=== PATIENT | female | born 1965 | race Hispanic/Latino ===

== ENCOUNTER 2019-04-06 15:51 | Emergency (ER) | payer SELFPAY ==
[2019-04-06 16:12] VITALS: BP 159/81
--- NOTE | 2019-04-06 16:16 | Emergency Department Report ---
Blank Doc - Documentation Documentation: pt presents with bilateral eye erythema, edema pain, mucus drainage from the e yes, eyelashes matting, last saw an eye doctor 4-5 months ago, did not get anything in the eye, some blurry vision, no fever, PMhx none, no daily meds, no allergies to meds
--- NOTE | 2019-04-06 16:22 | Emergency Department Report ---
ED Eye Problem HPI - General Chief complaint: Eye Problems Stated complaint: SWOLLEN EYES Time Seen by Provider: 04/06/19 16:11 Source: patient Mode of arrival: Ambulatory Limitations: No Limitations - History of Present Illness Initial comments: pt presents with bilateral eye erythema, edema pain, mucus drainage from the eyes, eyelashes matting, last saw an eye doctor 4-5 months ago, did not get anything in the eye, some blurry vision, no fever, PMhx none, no daily meds, no allergies to meds r 20/40 l 20/50 pt did not have her glasses on - Related Data Home Medications Medication Instructions Recorded Confirmed Last Taken Aspirin [Aspirin BABY CHEW TAB] 81 mg PO QDAY 04/06/19 04/06/19 04/06/19 Previous Rx's Medication Instructions Recorded Last Taken Type Erythromycin [Erythromycin Ophth 0.5 inch OP QID 7 Days tube 04/06/19 Unknown Rx Oint] Allergies Allergy/AdvReac Type Severity Reaction Status Date / Time No Known Allergies Allergy Unverified 04/06/19 15:52 ED Review of Systems ROS: Stated complaint: SWOLLEN EYES Other details as noted in HPI Comment: All other systems reviewed and negative ED Past Medical Hx - Past Medical History Previous Medical History?: No - Surgical History Past Surgical History?: Yes Additional Surgical History: tubal ligation - Social History Smoking Status: Current Every Day Smoker Substance Use Type: None - Medications Home Medications: Home Medications Medication Instructions Recorded Confirmed Last Taken Type Aspirin [Aspirin BABY CHEW TAB] 81 mg PO QDAY 04/06/19 04/06/19 04/06/19 History Erythromycin [Erythromycin Ophth 0.5 inch OP QID 7 Days tube 04/06/19 Unknown Rx Oint] ED Physical Exam - General Limitations: No Limitations General appearance: alert, in no apparent distress - Head Head exam: Present: atraumatic, normocephalic - Eye Eye exam: Present: PERRL, EOMI, conjunctival injection (bilaterally with purulent discharge, some mild edema of the sclera with erythema bilaterally), other (visual acuity: right eye 20/40, left eye 20/50, pt did not have on her glasses during visual acuity which she normally wears every day). Absent: periorbital swelling, periorbital tenderness - ENT ENT exam: Present: normal orophraynx, mucous membranes moist, other (normal nasal turbinates bilaterally ) - Neurological Exam Neurological exam: Present: alert, oriented X3 - Psychiatric Psychiatric exam: Present: normal affect, normal mood - Skin Skin exam: Present: warm, dry, intact ED Course Vital Signs 04/06/19 04/06/19 16:11 17:08 Temperature 97.9 F 97.9 F Pulse Rate 99 H 99 H Respiratory 18 18 Rate Blood Pressure 159/81 O2 Sat by Pulse 96 96 Oximetry ED Medical Decision Making - Medical Decision Making pt presents with erythema and edema of the bilateral sclera with purulent discharge, visual acuity was performed without pt having on her glasses and was 20/40 in the right eye, and 20/50 in the left, pt given erythromycin ointment, advised pt to follow up with ophthalmology in the next 2-3 days. follow up with PCP in the next 2-3 days. return to the emergency room immediately for any new or worsening symptoms. pt evaluated Dr. Childers and recommends treatment for conjunctivitis and ophthalmology referral. Critical care attestation.: If time is entered above; I have spent that time in minutes in the direct care of this critically ill patient, excluding procedure time. ED Disposition Clinical Impression: Conjunctivitis Qualifiers: Conjunctivitis type: acute Acute conjunctivitis type: unspecified Laterality: bilateral Qualified Code(s): H10.33 - Unspecified acute conjunctivitis, bilateral Disposition: TO HOME OR SELFCARE Is pt being admited?: No Does the pt Need Aspirin: No Condition: Stable Instructions: Conjunctivitis (ED) Additional Instructions: Please use medication as prescribed. Please follow up with an loan analyst in the next 2-3 days for reevaluation. Please follow up with PCP in the next 2-3 days. Return to the emergency room immediately for any new or worsening symptoms. Prescriptions: Erythromycin [Erythromycin Ophth Oint] 0.5 inch OP QID 7 Days tube Referrals: ESTELLE MURRAY MD [Staff Physician] - 2-3 Days ZAIRE CHAMORRO MD [Staff Physician] - 2-[address] [facility] [Outside] - 2-3 Days Time of Disposition: 16:26 Print Language: FRISIAN
== END 2019-04-06 17:10 | disposition home or self-care (01) ==
LOC: ED 15:51
DX: H10.33 Unspecified acute conjunctivitis, bilateral (principal); F17.200 Nicotine dependence, unspecified, uncomplicated; Z98.51 Tubal ligation status
CPT/HCPCS: 99282

== ENCOUNTER 2019-10-15 16:32 | Emergency (ER) | payer SELFPAY ==
[2019-10-15] MEDS ORDERED: traMADol 50 MG TAB PO ONE (20:13)
[2019-10-15] MEDS ORDERED: predniSONE 20 MG TAB PO ONE (20:13)
--- NOTE | 2019-10-15 21:25 | Emergency Department Report ---
ED Extremity Problem HPI - General Chief complaint: Extremity Problem,Nontraumatic Stated complaint: LT LEG PAIN Time Seen by Provider: 10/15/19 19:58 Source: patient Mode of arrival: Ambulatory Limitations: No Limitations - History of Present Illness Initial comments: Patient is a 55-year-old white female with a history of chronic degenerative joint disease who presents to the ED with complaint of acute exacerbation of her chronic left knee pain for the last 3 months worse in the last 1 week. Patient denies fall, traumatic injury, numbness and tingling or weakness of left leg, back pain, fever, chills, cough, chest pain, shortness of breath or heavy lifting. MD Complaint: extremity pain (LEFT KNEE JOINT PAIN), extremity swelling (Left knee joint), joint swelling (left knee), joint paint (left knee) -: Gradual, month(s) (3) Location: left, lower extremity (knee), knee -: Yes arthralgia (left knee) Severity scale (0 -10): 6 Quality: aching, sharp Consistency: constant Improves with: nothing Worsens with: weight bearing, walking, exertion, palpation Associated Symptoms: denies other symptoms, arthralgias. denies: chest pain, shortness of breath, fever, rash - Related Data Home Medications Medication Instructions Recorded Confirmed Last Taken Aspirin [Aspirin BABY CHEW TAB] 81 mg PO QDAY 04/06/19 04/06/19 04/06/19 Previous Rx's Medication Instructions Recorded Last Taken Type Erythromycin [Erythromycin Ophth 0.5 inch OP QID 7 Days tube 04/06/19 Unknown Rx Oint] Naproxen 500 mg PO Q12H PRN #30 tablet 10/15/19 Unknown Rx predniSONE [Deltasone] 60 mg PO QDAY #15 tab 10/15/19 Unknown Rx traMADoL [Ultram] 50 mg PO Q6HR PRN #12 tablet 10/15/19 Unknown Rx Allergies Allergy/AdvReac Type Severity Reaction Status Date / Time No Known Allergies Allergy Verified 10/15/19 16:35 ED Review of Systems ROS: Stated complaint: LT LEG PAIN Other details as noted in HPI Constitutional: denies: chills, fever Eyes: denies: eye pain, eye discharge, vision change ENT: denies: ear pain, throat pain Respiratory: denies: cough, shortness of breath, wheezing Cardiovascular: denies: chest pain, palpitations Endocrine: no symptoms reported Gastrointestinal: denies: abdominal pain, nausea, diarrhea Genitourinary: denies: urgency, dysuria, discharge Musculoskeletal: joint swelling (Left knee), arthralgia (LEFT KNEE), myalgia. denies: back pain Skin: denies: rash, lesions Neurological: denies: headache, weakness, paresthesias Psychiatric: denies: anxiety, depression Hematological/Lymphatic: denies: easy bleeding, easy bruising ED Past Medical Hx - Past Medical History Previous Medical History?: No - Surgical History Past Surgical History?: Yes Additional Surgical History: tubal ligation - Social History Smoking Status: Current Every Day Smoker Substance Use Type: None - Medications Home Medications: Home Medications Medication Instructions Recorded Confirmed Last Taken Type Aspirin [Aspirin BABY CHEW TAB] 81 mg PO QDAY 04/06/19 04/06/19 04/06/19 History Erythromycin [Erythromycin Ophth 0.5 inch OP QID 7 Days tube 04/06/19 Unknown Rx Oint] Naproxen 500 mg PO Q12H PRN #30 tablet 10/15/19 Unknown Rx predniSONE [Deltasone] 60 mg PO QDAY #15 tab 10/15/19 Unknown Rx traMADoL [Ultram] 50 mg PO Q6HR PRN #12 tablet 10/15/19 Unknown Rx ED Physical Exam - General Limitations: No Limitations General appearance: alert, in no apparent distress - Head Head exam: Present: atraumatic, normocephalic, normal inspection - Eye Eye exam: Present: normal appearance, PERRL, EOMI. Absent: scleral icterus, conjunctival injection, nystagmus Pupils: Present: normal accommodation - ENT ENT exam: Present: normal exam, normal orophraynx, mucous membranes moist, TM's normal bilaterally, normal external ear exam - Neck Neck exam: Present: normal inspection, full ROM. Absent: tenderness, meningismus, lymphadenopathy, thyromegaly - Respiratory Respiratory exam: Present: normal lung sounds bilaterally. Absent: respiratory distress, wheezes, rales, stridor, chest wall tenderness, accessory muscle use - Cardiovascular Cardiovascular Exam: Present: regular rate, normal rhythm, normal heart sounds. Absent: systolic murmur, diastolic murmur, rubs, gallop - GI/Abdominal GI/Abdominal exam: Present: soft, normal bowel sounds. Absent: tenderness, rebound, hyperactive bowel sounds, hypoactive bowel sounds - Extremities Exam Extremities exam: Present: normal inspection, full ROM, tenderness (Left knee), normal capillary refill, joint swelling (left knee) - Back Exam Back exam: Present: normal inspection, full ROM. Absent: tenderness, CVA tenderness (R), muscle spasm, paraspinal tenderness, vertebral tenderness - Neurological Exam Neurological exam: Present: alert, oriented X3, CN II-XII intact, normal gait, reflexes normal - Psychiatric Psychiatric exam: Present: normal affect, normal mood - Skin Skin exam: Present: warm, dry, intact, normal color. Absent: rash ED Course Vital Signs 10/15/19 17:34 Temperature 97.9 F Pulse Rate 89 Respiratory 20 Rate Blood Pressure 177/79 O2 Sat by Pulse 95 Oximetry ED Medical Decision Making - Medical Decision Making This is a 54-year-old female with a history of chronic degenerative joint disease who presents to the ED with acute exacerbation of her chronic left knee pain for 3 months, worse in the last 1 week. In the ED, patient is alert and oriented 3 and is not in distress. Patient was treated for pain and discharged home on pain medications and was advised to follow-up with her primary care physician in 7-10 days for reevaluation or return to the ED immediately if symptoms get worse. - Differential Diagnosis DJD; Chronic pain; Muscle strain; Critical care attestation.: If time is entered above; I have spent that time in minutes in the direct care of this critically ill patient, excluding procedure time. ED Disposition Clinical Impression: Chronic pain of left knee Degenerative joint disease of left knee Qualifiers: Osteoarthritis type: primary Qualified Code(s): M17.12 - Unilateral primary osteoarthritis, left knee Disposition: TO HOME OR SELFCARE Is pt being admited?: No Does the pt Need Aspirin: No Condition: Stable Instructions: Arthralgia (ED), Osteoarthritis (ED), Knee Pain (ED) Additional Instructions: Take medication with food, drink plenty fluids and follow-up with your primary care physician in 7-10 days for reevaluation. Return to the ED immediately if symptoms get worse. Prescriptions: predniSONE [Deltasone] 60 mg PO QDAY #15 tab Naproxen 500 mg PO Q12H PRN #30 tablet PRN Reason: Pain , Severe (7-10) traMADoL [Ultram] 50 mg PO Q6HR PRN #12 tablet PRN Reason: Pain Referrals: [facility] [Outside] - 3-5 Days Time of Disposition: 21:17 Print Language: FIJIAN
[2019-10-15 21:36] VITALS: BP 158/86
== END 2019-10-15 21:30 | disposition home or self-care (01) ==
LOC: ED 16:32
DX: M17.12 Unilateral primary osteoarthritis, left knee (principal); G89.29 Other chronic pain; F17.200 Nicotine dependence, unspecified, uncomplicated; Z98.51 Tubal ligation status; Z79.899 Other long term (current) drug therapy
CPT/HCPCS: 99282; J7512

== ENCOUNTER 2020-08-30 15:35 | Emergency (ER) | payer SELFPAY ==
--- NOTE | 2020-08-30 16:39 | XRay Report ---
LEFT KNEE 3 VIEWS INDICATION / CLINICAL INFORMATION: BRUISING AND PAIN. COMPARISON: None available. FINDINGS: No significant skeletal abnormality Signer Name: Alexis Lynch MD FACR Signed: 08/30/2020 4:35 PM Workstation Name: [id number]
--- NOTE | 2020-08-30 16:40 | XRay Report ---
LEFT FEMUR 4 VIEWS INDICATION / CLINICAL INFORMATION: PAIN AND SWELLING. COMPARISON: None available. FINDINGS: No significant skeletal abnormality Signer Name: Alexis Lynch MD FACR Signed: 08/30/2020 4:36 PM Workstation Name: [id number]
[2020-08-30] MEDS ORDERED: ONDANSETRON 4 MG/2 ML INJ IM ONE (18:07)
[2020-08-30] MEDS ORDERED: MORPHINE 4 MG/1 ML INJ IM ONE (18:07)
--- NOTE | 2020-08-30 18:10 | Emergency Department Report ---
ED Fall HPI - General Chief Complaint: Fall Stated Complaint: LT LEG PAIN/FALL Time Seen by Provider: 08/30/20 18:02 Source: patient Mode of arrival: Ambulatory - History of Present Illness Initial Comments: Patient is 55 years old female with no significant past medical history. Patient presented to the ER for evaluation after a fall that happened 3 days ago. Patient stated that she fell 6 feet through a deck. Patient is complaining of left lower thigh swelling and pain. Patient denied any other injuries. Patient denied any loss of consciousness. MD Complaint: fall -: days(s) (3) Fall From: standing Fall Witnessed: yes, by family Place Fall Occurred: home Loss of Consciousness: none Prolonged Down Time?: no Symptoms Prior to Fall: none Location - Extremities: Left: Thigh Severity: moderate Severity scale (0 -10): 5 Quality: sharp Context: tripped/slipped Associated Symptoms: denies - Related Data Home Medications Medication Instructions Recorded Confirmed Last Taken Aspirin [Aspirin BABY CHEW TAB] 81 mg PO QDAY 04/06/19 04/06/19 04/06/19 Previous Rx's Medication Instructions Recorded Last Taken Type Erythromycin [Erythromycin Ophth 0.5 inch OP QID 7 Days tube 04/06/19 Unknown Rx Oint] Naproxen 500 mg PO Q12H PRN #30 tablet 10/15/19 Unknown Rx predniSONE [Deltasone] 60 mg PO QDAY #15 tab 10/15/19 Unknown Rx traMADoL [Ultram] 50 mg PO Q6HR PRN #12 tablet 10/15/19 Unknown Rx Allergies Allergy/AdvReac Type Severity Reaction Status Date / Time No Known Allergies Allergy Verified 08/30/20 15:44 ED Review of Systems ROS: Stated complaint: LT LEG PAIN/FALL Other details as noted in HPI Comment: All other systems reviewed and negative Constitutional: denies: chills, fever Respiratory: denies: cough, shortness of breath, SOB with exertion Cardiovascular: denies: chest pain, palpitations Gastrointestinal: denies: abdominal pain, nausea, vomiting Musculoskeletal: myalgia Neurological: denies: headache, weakness, numbness, paresthesias, confusion ED Past Medical Hx - Past Medical History Previous Medical History?: No - Surgical History Past Surgical History?: Yes Additional Surgical History: tubal ligation - Social History Smoking Status: Current Every Day Smoker Substance Use Type: None - Medications Home Medications: Home Medications Medication Instructions Recorded Confirmed Last Taken Type Aspirin [Aspirin BABY CHEW TAB] 81 mg PO QDAY 04/06/19 04/06/19 04/06/19 History Erythromycin [Erythromycin Ophth 0.5 inch OP QID 7 Days tube 04/06/19 Unknown Rx Oint] Naproxen 500 mg PO Q12H PRN #30 tablet 10/15/19 Unknown Rx predniSONE [Deltasone] 60 mg PO QDAY #15 tab 10/15/19 Unknown Rx traMADoL [Ultram] 50 mg PO Q6HR PRN #12 tablet 10/15/19 Unknown Rx ED Physical Exam - General Limitations: No Limitations General appearance: alert, in no apparent distress - Head Head exam: Present: atraumatic, normocephalic, normal inspection - Eye Eye exam: Present: normal appearance, PERRL - ENT ENT exam: Present: normal exam, normal orophraynx, mucous membranes moist - Neck Neck exam: Present: normal inspection, full ROM. Absent: tenderness, meningismus - Respiratory Respiratory exam: Present: normal lung sounds bilaterally - Cardiovascular Cardiovascular Exam: Present: regular rate, normal rhythm, normal heart sounds - GI/Abdominal GI/Abdominal exam: Present: soft, normal bowel sounds. Absent: distended, tenderness, guarding, rebound, rigid, mass, bruit, pulsatile mass, hernia - Expanded Lower Extremity Exam Left Knee exam: Present: tenderness, swelling, ecchymosis. Absent: deformity, crepidus, dislocation, erythema, effusion, pain w/ pronation/supination, p osterior draw sign, pain/laxity with valgus, pain/laxity with varus, full knee extension Lower Leg exam: Present: normal inspection, full ROM. Absent: tenderness Ankle exam: Present: normal inspection, full ROM. Absent: tenderness Foot/Toe exam: Present: normal inspection, full ROM. Absent: tenderness Neuro vascular tendon exam: Present: no vascular compromise Gait: Positive: observed and normal - Back Exam Back exam: Present: normal inspection - Neurological Exam Neurological exam: Present: alert, oriented X3, CN II-XII intact, normal gait, reflexes normal. Absent: motor sensory deficit - Psychiatric Psychiatric exam: Present: normal mood - Skin Skin exam: Present: warm, intact, ecchymosis ED Course Vital Signs 08/30/20 15:52 Temperature 98.0 F Pulse Rate 93 H Respiratory 18 Rate Blood Pressure 117/54 [Right] O2 Sat by Pulse 100 Oximetry ED Medical Decision Making - Radiology Data Radiology results: report reviewed - Medical Decision Making Patient is 55 years old female with no significant past medical history. Patient presented to the ER for evaluation after a fall that happened 3 days ago. Patient stated that she fell 6 feet through a deck. Patient is complaining of left lower thigh swelling and pain. Patient denied any other injuries. Patient denied any loss of consciousness. Patient received morphine for pain and stated that helped. X-ray of the left femur and left knee is unremarkable. Patient advised to follow-up with her primary doctor in the next 2 to 3 days and to return to the ER if she develop a ny new symptoms. Critical care attestation.: If time is entered above; I have spent that time in minutes in the direct care of this critically ill patient, excluding procedure time. ED Disposition Clinical Impression: Fall, Contusion of thigh, left Disposition: DC-01 TO HOME OR SELFCARE Is pt being admited?: No Condition: Stable Instructions: Fall Prevention (ED), Contusion in Adults (ED) Referrals: [facility] [Provider Group] - 3-5 Days
[2020-08-30 19:08] VITALS: BP 111/66
== END 2020-08-30 19:07 | disposition home or self-care (01) ==
LOC: ED 15:35
DX: S70.12XA Contusion of left thigh, initial encounter (principal); F17.200 Nicotine dependence, unspecified, uncomplicated; Z79.899 Other long term (current) drug therapy; Z98.51 Tubal ligation status; W17.89XA Other fall from one level to another, initial encounter; Y93.89 Activity, other specified; Y92.009 Unspecified place in unspecified non-institutional (private) residence as the place of occurrence of the external cause; Y99.8 Other external cause status
CPT/HCPCS: 73552; 73562; 96372; 99283; J2270; J2405

== ENCOUNTER 2020-09-03 15:07 | Emergency (ER) | payer SELFPAY ==
[2020-09-03 15:37] VITALS: BP 154/76
--- NOTE | 2020-09-03 18:29 | Event Note ---
ED Screening Note ED Screening Note: left leg pain and swelling fell off deck was seen on 08/30/2020 had XRs which were WNL states she has had increased swelling and pain of the leg This initial assessment/diagnostic orders/clinical plan/treatment(s) is/are subject to change based on patients health status, clinical progression and re-assessment by fellow clinical providers in the ED. Further treatment and workup at subsequent clinical providers discretion. Patient/guardian urged not to elope from the ED as their condition may be serious if not clinically assessed and managed. Initial orders include: US
--- NOTE | 2020-09-03 19:23 | Vascular Lab Report ---
DUPLEX DOPPLER LOWER EXTREMITY VEINS, LEFT INDICATION / CLINICAL INFORMATION: Left leg pain and swelling. TECHNIQUE: Duplex doppler imaging was performed through the veins of the left lower extremity using venous compr ession and other maneuvers. COMPARISON: None available. FINDINGS: LEFT COMMON FEMORAL VEIN: Negative. LEFT FEMORAL VEIN: Negative. LEFT POPLITEAL VEIN: Negative. LEFT CALF VEINS: Negative. ADDITIONAL FINDINGS: There is no evidence of a hematoma, popliteal cyst or other significant abnormal ity. IMPRESSION: No sonographic evidence for DVT in the left lower extremity. Signer Name: Amos Loco MD Signed: 09/03/2020 7:19 PM Workstation Name: [id number]
--- NOTE | 2020-09-03 19:46 | Emergency Department Report ---
ED Lower Extremity HPI - General Chief Complaint: Extremity Injury, Lower Stated Complaint: FELL/LEG PAIN LT Time Seen by Provider: 09/03/20 18:27 Source: patient Mode of arrival: Ambulatory Limitations: No Limitations - History of Present Illness Initial Comments: Patient is a 55-year-old female who presents for left leg pain and swelling s/p fall off deck was seen on 08/30/2020. she had XRs which were WNL, now states she has had increased swelling and pain of the leg. There is no numbness , no tingling, no deformity, pt remains ambulatory to based, there has been no cough, no sob, no hemoptysis, no dizziness, no lightheadedness, no cp, no n/v , no pnd, no activity intolerances , no drainage or bleeding from bruise site. MD Complaint: leg injury - Related Data Home Medications Medication Instructions Recorded Confirmed Last Taken Aspirin [Aspirin BABY CHEW TAB] 81 mg PO QDAY 04/06/19 04/06/19 04/06/19 Previous Rx's Medication Instructions Recorded Last Taken Type Erythromycin [Erythromycin Ophth 0.5 inch OP QID 7 Days tube 04/06/19 Unknown Rx Oint] Naproxen 500 mg PO Q12H PRN #30 tablet 10/15/19 Unknown Rx predniSONE [Deltasone] 60 mg PO QDAY #15 tab 10/15/19 Unknown Rx traMADoL [Ultram] 50 mg PO Q6HR PRN #12 tablet 10/15/19 Unknown Rx Naproxen [Naprosyn] 500 mg PO BID #14 tablet 08/30/20 Unknown Rx Ondansetron [Zofran Odt] 4 mg PO Q8HR PRN #14 tab.rapdis 08/30/20 Unknown Rx traMADoL [Ultram 50 MG tab] 50 mg PO Q4HR PRN #14 tablet 08/30/20 Unknown Rx Allergies Allergy/AdvReac Type Severity Reaction Status Date / Time No Known Allergies Allergy Verified 08/30/20 15:44 ED Review of Systems ROS: Stated complaint: FELL/LEG PAIN LT Other details as noted in HPI Constitutional: denies: chills, fever Eyes: denies: eye pain, eye discharge, vision change ENT: denies: ear pain, throat pain Respiratory: denies: cough, shortness of breath, wheezing Cardiovascular: denies: chest pain, palpitations Endocrine: no symptoms reported Gastrointestinal: denies: abdominal pain, nausea, diarrhea Genitourinary: denies: urgency, dysuria, discharge Musculoskeletal: arthralgia, other (bruising left thigh ) Skin: change in color (bruising left lateral thigh ) Neurological: denies: headache, weakness, paresthesias Psychiatric: denies: anxiety, depression Hematological/Lymphatic: denies: easy bleeding, easy bruising ED Past Medical Hx - Past Medical History Previous Medical History?: No - Surgical History Past Surgical History?: Yes Additional Surgical History: tubal ligation - Social History Smoking Status: Current Every Day Smoker Substance Use Type: None - Medications Home Medications: Home Medications Medication Instructions Recorded Confirmed Last Taken Type Aspirin [Aspirin BABY CHEW TAB] 81 mg PO QDAY 04/06/19 04/06/19 04/06/19 History Erythromycin [Erythromycin Ophth 0.5 inch OP QID 7 Days tube 04/06/19 Unknown Rx Oint] Naproxen 500 mg PO Q12H PRN #30 tablet 10/15/19 Unknown Rx predniSONE [Deltasone] 60 mg PO QDAY #15 tab 10/15/19 Unknown Rx traMADoL [Ultram] 50 mg PO Q6HR PRN #12 tablet 10/15/19 Unknown Rx Naproxen [Naprosyn] 500 mg PO BID #14 tablet 08/30/20 Unknown Rx Ondansetron [Zofran Odt] 4 mg PO Q8HR PRN #14 tab.rapdis 08/30/20 Unknown Rx traMADoL [Ultram 50 MG tab] 50 mg PO Q4HR PRN #14 tablet 08/30/20 Unknown Rx ED Physical Exam - General Limitations: No Limitations General appearance: alert, in no apparent distress - Head Head exam: Present: atraumatic, normocephalic - Eye Eye exam: Present: normal appearance, EOMI Pupils: Present: normal accommodation - ENT ENT exam: Present: mucous membranes moist - Neck Neck exam: Present: normal inspection - Respiratory Respiratory exam: Present: normal lung sounds bilaterally. Absent: respiratory distress, wheezes, stridor, chest wall tenderness - Cardiovascular Cardiovascular Exam: Present: regular rate, normal rhythm, normal heart sounds. Absent: systolic murmur, diastolic murmur, rubs, gallop - GI/Abdominal GI/Abdominal exam: Present: soft, normal bowel sounds. Absent: distended, tenderness, bruit, hernia - Rectal Rectal exam: Present: deferred - Extremities Exam Extremities exam: Present: normal inspection, full ROM, tenderness (left lateral thigh , bruising, moderate swelling, no bruit, no thrill ), normal capillary refill. Absent: pedal edema, calf tenderness - Back Exam Back exam: Present: normal inspection, full ROM, tenderness. Absent: CVA tenderness (R), CVA tenderness (L), vertebral tenderness - Neurological Exam Neurological exam: Present: alert, oriented X3, CN II-XII intact, normal gait - Psychiatric Psychiatric exam: Present: normal affect - Skin Skin exam: Present: warm, dry, intact, normal color, erythema, ecchymosis (left thigh ). Absent: rash, urticaria ED Course Vital Signs 09/03/20 15:31 Temperature 98.1 F Pulse Rate 94 H Respiratory 18 Rate Blood Pressure 154/76 [Right] O2 Sat by Pulse 96 Oximetry ED Lower Extremity MDM - Radiology Data Radiology results: report reviewed, image reviewed Findings Reporting MD: Amos Loco Dictation Time: September 03, 2020 18:19 [place]: Not available Intensive Care Anaesthetist Date: DUPLEX DOPPLER LOWER EXTREMITY VEINS, LEFT INDICATION / CLINICAL INFORMATION: Left leg pain and swelling. TECHNIQUE: Duplex doppler imaging was performed through the veins of the left lower extremity using venous compression and other maneuvers. COMPARISON: None available. FINDINGS: LEFT COMMON FEMORAL VEIN: Negative. LEFT FEMORAL VEIN: Negative. LEFT POPLITEAL VEIN: Negative. LEFT CALF VEINS: Negative. ADDITIONAL FINDINGS: There is no evidence of a hematoma, popliteal cyst or other significant abnormality. IMPRESSION: No sonographic evidence for DVT in the left lower extremity. Signer Name: Amos Loco MD Signed: 09/03/2020 6:19 PM Workstation Name: [id number] - Medical Decision Making Ultrasound rule out DVT is negative no DVT no mass no tumor no hematoma, negative Homans' sign there is no calf tenderness distal pulses are intact patient is amatory with steady gait there is no numbness tingling or weakness. There is moderate ecchymosis plan , continue daily aspirin, continue moist heat therapy, continue with thigh exercises, follow-up with primary care in 3 to 5 days if symptoms are not improving return to emergency should symptoms develop including signs and symptoms of PE versus DVT which are explained the patient in detail patient has verbalized agreement and understanding with same. There is no shortness of breath no chest pain no activity intolerance. Patient will be DC'd home in stable condition at this time. Patient to home via POV and family member. Critical care attestation.: If time is entered above; I have spent that time in minutes in the direct care of this critically ill patient, excluding procedure time. ED Disposition Clinical Impression: Musculoskeletal pain of left lower extremity Contusion Qualifiers: Encounter type: subsequent encounter Contusion area: thigh Laterality: left Qualified Code(s): S70.12XD - Contusion of left thigh, subsequent encounter Disposition: DC-01 TO HOME OR SELFCARE Is pt being admited?: No Does the pt Need Aspirin: No Condition: Stable Instructions: Contusion in Adults (ED), Musculoskeletal Pain (ED) Referrals: STEVE RENDON MD [Staff Physician] - 3-5 Days AMOS MARTINEZ MD [Staff Physician] - 3-5 Days
== END 2020-09-03 20:15 | disposition home or self-care (01) ==
LOC: ED 15:07
DX: S70.12XD Contusion of left thigh, subsequent encounter (principal); F17.200 Nicotine dependence, unspecified, uncomplicated; Z98.51 Tubal ligation status; X58.XXXA Exposure to other specified factors, initial encounter
CPT/HCPCS: 99283